=== PATIENT | female | born 1940 | race Caucasian/White ===

== ENCOUNTER → 2017-08-12 | Outpatient (CLI) | payer MEDICARE, OTHER ==
[~2017-08-12] MED LIST: AMLO2.5T PO; ASPI-496 PO; CALC600T4 PO; CARV-39 PO; CHOL400T10 PO; IRBE300T16 PO; LOVA40TA2 PO
[2017-08-12 13:12] LABS: BASOPHILS # (AUTO) 0.02 x10^3/uL (0-0.1); BASOPHILS % (AUTO) 0 % (0-1); EOSINOPHILS # (AUTO) 0.15 x10^3/uL (0-0.4); EOSINOPHILS % (AUTO) 2 % (1-7); HCT (SEDRATE) 44.2 % (34.6-47.8); LYMPHOCYTES # (AUTO) 1.51 x10^3/uL (1-3.4); LYMPHOCYTES % (AUTO) 18 % (22-44); MD NO; MEAN CORPUSCULAR HEMOGLOBIN 32.9 pg (27.0-34.8); MEAN CORPUSCULAR HGB CONC 33.9 g/dL (32.4-35.8); MEAN CORPUSCULAR VOLUME 97.2 fL (80-100); MEAN PLATELET VOLUME 6.8 fL (7.4-10.4); MONOCYTES # (AUTO) 0.57 x10^3/uL (0.2-0.8); MONOCYTES % (AUTO) 7 % (2-9); NEUTROPHILS # (AUTO) 6.11 x10^3/uL (1.8-6.8); NEUTROPHILS % (AUTO) 73 % (42-75); PLATELET COUNT 276 x10^3/uL (130-400); RED BLOOD COUNT 4.55 x10^6/uL (3.82-5.3); RED CELL DISTRIBUTION WIDTH 13.4 % (9.6-15.2)
[2017-08-12 13:21] LABS: MICROSCOPIC NOT IND
[2017-08-12 13:26] LABS: CULTURE INDICATED? NO
[2017-08-12 13:27] LABS: ALANINE AMINOTRANSFERASE 25 U/L (12-78); ALBUMIN 4.1 g/dL (3.4-5.0); ANION GAP 9 mmol/L (5-15); CALCIUM 9.5 mg/dL (8.5-10.1); CHLORIDE 92 mmol/L (98-107)
[2017-08-12 13:28] LABS: ALKALINE PHOSPHATASE 61 U/L (45-117); BILIRUBIN,TOTAL 0.7 mg/dL (0.2-1.0); CREATININE 0.57 mg/dL (0.55-1.02); TOTAL PROTEIN 8.1 g/dL (6.4-8.2)
[2017-08-12 13:40] LABS: INTERNATIONAL NORMALIZED RATIO 0.93 (0.93-1.1); PROTHROMBIN TIME 9.6 Seconds (9.6-11.5)
[2017-08-12 13:45] LABS: SEDIMENTATION RATE 17 mm/hr (0-20)
== END | disposition home or self-care (01) ==
LOC: STAR 11:56
PROVIDERS: ATTEND Orthopaedic Surgery Orthopaedic Surgery of the Spine
DX: Z01.818 Encounter for other preprocedural examination (principal); M48.54XA Collapsed vertebra, not elsewhere classified, thoracic region, initial encounter for fracture; I45.10 Unspecified right bundle-branch block
CPT/HCPCS: 36415; 71046; 80053; 80074; 81003; 85025; 85610; 85651; 85730; 87806; 93005; G0475

== ENCOUNTER 2017-09-02 06:44 | Day surgery (SDC) | payer MEDICARE, OTHER ==
[~2017-09-02] VITALS: Ht 167.6 cm; Wt 53.8 kg
[2017-09-02] MEDS ORDERED: EPINEPHRINE 1 MG/ML, 1ML ONE (06:59)
[2017-09-02] MEDS ORDERED: BUPIVACAINE/PF 0.5% ONE (06:59)
[2017-09-02] MEDS ORDERED: LIDOCAINE 1%, 20ML ONE (06:59)
[2017-09-02] MEDS ORDERED: LACTATED RINGERS 1,000 ML IV SCH (07:34)
[2017-09-02] MEDS ORDERED: LIDOCAINE-MPF 1%, 2ML INFIL ONE (08:00)
[2017-09-02] MEDS ORDERED: GABA300C10 PO (08:03)
[2017-09-02 08:06] VITALS: BP 138/89
[2017-09-02] MEDS ORDERED: FENTANYL PF 100 MCG/2ML ONE (08:49)
[2017-09-02] MEDS ORDERED: ALBUTEROL SULFATE 200 PUFFS/8.5 GR INH ONE (09:11)
[2017-09-02] MEDS ORDERED: PHENYLEPHRINE 10 MG/ML ONE (09:11)
[2017-09-02] MEDS ORDERED: FENTANYL PF 100 MCG/2ML IV PRN (10:00)
[2017-09-02] MEDS ORDERED: ONDANSETRON 2MG/ML, 2ML IVPush PRN (10:00)
[2017-09-02] MEDS ORDERED: ALBUTEROL/IPRATROPIUM 2.5MG/0.5MG, 3 ML NPPB PRN (10:00)
[2017-09-02] MEDS ORDERED: PROMETHAZINE 25 MG/ML, 1ML IV PRN (10:00)
[2017-09-02] MEDS ORDERED: MIDAZOLAM 1 MG/ML, 2ML IV PRN (10:00)
[2017-09-02] MEDS ORDERED: ALBUTEROL SULFATE 2.5 MG/3 ML NPPB PRN (10:00)
[2017-09-02] MEDS ORDERED: ACETAMINOPHEN 325 MG TABLET PO PRN (10:00)
[2017-09-02] MEDS ORDERED: hydrALAzine 20 MG/ML, 1ML IV PRN (10:00)
[2017-09-02] MEDS ORDERED: OXYcodone 5 MG/5 ML ORAL.SOL UDC PO PRN (10:00)
[2017-09-02] MEDS ORDERED: PROMETHAZINE 12.5 MG SUPP PR PRN (10:00)
[2017-09-02] MEDS ORDERED: PROPOFOL 10 MG/ML, 20ML ONE (10:17)
[2017-09-02] MEDS ORDERED: DEXAMETHASONE 4 MG/ML, 1ML ONE (10:17)
[2017-09-02] MEDS ORDERED: ONDANSETRON 2MG/ML, 2ML ONE (10:17)
[2017-09-02] MEDS ORDERED: CEFAZOLIN 1,000 MG ONE (10:17)
[2017-09-02] MEDS ORDERED: SUCCINYLCHOLINE 20 MG/ML, 10ML ONE (10:18)
[2017-09-02] MEDS ORDERED: OMNIPAQUE 180 MG/ML, 20ML VIAL ONE (10:25)
[2017-09-02] MEDS ORDERED: ACETAMINOPHEN 650 MG/20.3 ML UDC ONE (10:38)
[2017-09-02] MEDS ORDERED: OXYcodone 5 MG/5 ML ORAL.SOL UDC ONE (10:39)
== END 2017-09-02 12:45 ==
LOC: OUT 06:44
PROVIDERS: ATTEND Orthopaedic Surgery Orthopaedic Surgery of the Spine
DX: M80.88XA Other osteoporosis with current pathological fracture, vertebra(e), initial encounter for fracture (principal); M54.5 Low back pain; F17.210 Nicotine dependence, cigarettes, uncomplicated; J44.9 Chronic obstructive pulmonary disease, unspecified; I10 Essential (primary) hypertension; E78.00 Pure hypercholesterolemia, unspecified; Z98.890 Other specified postprocedural states; Z79.82 Long term (current) use of aspirin
CPT/HCPCS: 22513; 72072; 88307; 88311; J0171; J0330; J0690; J1100; J2370; J2405; J2704; J3010; J3490; J7120; Q9965; 95938; 95941; C1713